=== PATIENT | male | born 1965 | race Caucasian/White ===

== ENCOUNTER 2017-06-13 13:33 | Emergency (ER) | payer MEDICARE, OTHER ==
[2017-06-13 14:27] LABS: Hematocrit 44.5 % (42.0-52.0); Hemoglobin 15.8 gm/dL (13.5-18.0); Mean Cell Volume 95.1 fl (78-100); Mean Corpuscular Hemoglobin 33.8 pg (27-31); Mean Corpuscular Hgb Conc 35.5 g/dl (32-36); Mean Platelet Volume 10.4 fl (6.0-9.5); Neutrophil # 3.8 K/mm3 (1.3-6.0); Neutrophil % 59.5 % (42-75.0); Platelet Count 83 K/mm3 (150-450); Red Blood Count 4.68 M/mm3 (4.7-6.0); Red Cell Distribution Width 13.7 % (11.5-14.0); White Blood Count 6.3 K/mm3 (4.0-10.5)
--- NOTE | 2017-06-13 14:28 | ERNOTE ---
Medical Problem HPI - General Chief Complaint: General Assessment Time Seen by Provider: 06/13/17 13:58 Source: patient, family Exam Limitations: no limitations - Immun/Allergies/Home Medications Immunizations: IMMUNIZATION HX History of Influenza Vaccine No Hx Pneumococcal Vaccination No Allergies/Adverse Reactions: Allergies No Known Allergies Allergy (Unverified 06/13/17 13:50) Home Medications: HOME MEDICATIONS Escitalopram Oxalate [Lexapro] 20 mg PO DAILY 06/13/17 [Last Taken Unknown] Famotidine [Pepcid] 40 mg PO HS #30 tab 06/13/17 [Last Taken Unknown] Hydroxyzine HCl 50 mg PO QID 06/13/17 [Last Taken Unknown] risperiDONE [Risperdal] 0.25 mg PO BID 06/13/17 [Last Taken Unknown] - History of Present History Narrative: Patient missed to having a fairly extensive history of alcohol abuse and shows up today because he simply doesn't feel right. He admits to having had alcohol to several hours prior to arrival. Denies any significant pain. Timing: constant Severity: moderate Review of Systems - Review of Systems Constitutional: Present: See HPI EYE: Present: no symptoms reported ENT: Present: no symptoms reported Respiratory: Present: no symptoms reported Cardiology: Present: no symptoms reported Gastrointestinal/Abdominal: Present: no symptoms reported Genitourinary: Present: no symptoms reported Musculoskeletal: Present: no symptoms reported Skin: Present: no symptoms reported Neurological: Present: no symptoms reported Endocrine: Present: no symptoms reported Hematologic/Lymphatic: Present: no symptoms reported Psych: Present: no symptoms reported - Patient's Past Medical History Patient History - Medical: Alcohol Abuse, Anxiety, Depression Patient History - Cardiac/Respiratory: No pertinent hx Patient History - Cancer: No Hx of Cancer Patient History - Surgical Procedures: Cholecystectomy, T & A Patient History - Other: None - Social History Living Situations: home Psych History: Hx of Anxiety, Hx of Depression Alcohol Use: none Drug Use: none - Immunizations Hx Pneumococcal Vaccination: No History of Influenza Vaccine: No Physical Exam - Physical Exam General Appearance: Present: wd/wn, alert, no apparent distress Eye Exam: PERRL: bilateral, EOMI: bilateral, Scleral icterus: bilateral Ears, Nose, Throat: Present: normal ENT inspection, H, normal pharynx Neck: Present: normal inspection, nontender Respiratory: Present: no respiratory distress, normal breath sounds, no accessory muscle use, chest nontender, lungs clear Cardiovascular/Chest: Present: regular rate, rhythm, no murmur, normal peripheral pulses Gastrointestinal/Abdominal: Present: normal bowel sounds, nondistended, soft, tenderness - over the liver Rectal Exam: Present: deferred Back Exam: Present: normal inspection, normal range of motion Extremity Exam: Present: normal inspection, non-tender, no edema, normal range of motion Neurological Exam: Present: alert, oriented, normal mood/affect Skin Exam: Present: normal color, warm/dry Lymphatic Exam: Present: no adenopathy ED Progress - Results and Orders Patient's Lab Results:: I have reviewed the patient's lab results. - Vital Signs Patient's Vital Signs:: I have reviewed the patient's vital signs. Vital Signs: Vital Signs 06/13/17 13:44 Temperature 36.5 C Pulse Rate 79 Respiratory 12 Rate Blood Pressure 149/79 O2 Sat by Pulse 97 Oximetry - Progress/Reassessment Chief Complaint: General Assessment Plan - Plan Plan: Patient has chronic gastritis, I suspect from the alcohol and we will start him on Pepcid 40 mg of bedtime and he will try to find a sponsor for AA and see whether or not he is ready to quit his drinking alcohol. Departure Clinical Impression: Alcohol abuse Alcohol intoxication Qualifiers: Complication of substance-induced condition: uncomplicated Qualified Code(s): F10.920 - Alcohol use, unspecified with intoxication, uncomplicated - Departure Disposition: Home self-care Condition: Good Instructions: Alcohol Use Disorder, Alcohol Intoxication, [id number] Referrals: Prashanth Zarate MD [Primary Care Provider] - Prescriptions: Famotidine [Pepcid] 40 mg PO HS #30 tab
[2017-06-13 14:39] LABS: Albumin * 4.2 gm/dl (3.4-5.0); BUN/Creatinine Ratio 4.1 (9.0-21.6); Bilirubin, Total 3.2 mg/dL (0.0-1.1); Ca. Corrected For Albumin 8.2 mg/dL (8.4-10.2); Calcium * 8.7 mg/dL (7.9-10.9); Carbon Dioxide 30.5 mmol/L (24-32.6); Magnesium 1.9 mg/dL (1.2-2.8); Potassium 3.5 mmol/L (3.4-4.6); Total Protein 7.9 gm/dL (6.2-8.2)
[2017-06-13 14:48] VITALS: BP 147/77
== END 2017-06-13 15:25 | disposition home or self-care (01) ==
LOC: ER 13:33
DX: F10.920 Alcohol use, unspecified with intoxication, uncomplicated (principal); K29.50 Unspecified chronic gastritis without bleeding
CPT/HCPCS: 36415; 80053; 82140; 83735; 85025; 99283; G0481